=== PATIENT | male | born 1960 | race Caucasian/White ===

== ENCOUNTER → 2017-12-29 | Outpatient (CLI) | payer OTHER ==
--- NOTE | 2017-12-29 15:14 | RADRPT ---
EXAM DATE/TIME: 12/29/2017 12:45 [place] COMPARISON: No previous studies available for comparison. INDICATIONS : Left shoulder pain, fell 2 weeks ago skiing MEDICAL HISTORY : None. SURGICAL HISTORY : None. ENCOUNTER: Initial ACUITY: 2 weeks PAIN SCORE: 0/10 LOCATION: Left shoulder FINDINGS: Multiple view examination of the left shoulder demonstrates no evidence of fracture or dislocation. The glenohumeral and acromioclavicular joints are maintained. There is normal range of motion betwee n internal and external rotation. Bony mineralization is normal. CONCLUSION: No acute disease. Rajiv Sibley MD on December 29, 2017 at 15:11 Board Certified Radiologist. This report was verified electronically.
== END ==
LOC: HRAD 12:30
DX: M25.512 Pain in left shoulder (principal)
CPT/HCPCS: 73030